=== PATIENT | female | born 1990 | race African-American/Black ===

== ENCOUNTER → 2020-01-12 | Outpatient (CLI) | payer BC ==
[~2020-01-12] MED LIST: CEFTIN 250250 MG/TAB PO; FLEXERIL5 MG PO; NAPROSYN500 MG PO; PERCOCET 325 MG1 TA2 PO; VALIUM 2MG T2 MG/TAB PO
== END ==
LOC: COL.VAS 01-11 09:15
DX: I34.0 Nonrheumatic mitral (valve) insufficiency (principal); Q68.1 Congenital deformity of finger(s) and hand; M24.9 Joint derangement, unspecified